=== PATIENT | male | born 1965 | race Caucasian/White ===

== ENCOUNTER 2017-08-03 12:53 | Day surgery (SDC) | payer OTHER ==
[2017-08-03] MEDS ORDERED: MIDAZOLAM 1 MG/ML 2 ML INJ ×2 (15:38)
[2017-08-03] MEDS ORDERED: FENTAnyl 50 MCG/ML VIAL (15:38)
[2017-08-03] MEDS ORDERED: MEPERIDINE 50 MG INJ (15:38)
== END 2017-08-03 16:20 | disposition home or self-care (01) ==
LOC: GIL 12:53
DX: Z12.11 Encounter for screening for malignant neoplasm of colon (principal); D12.4 Benign neoplasm of descending colon; K57.90 Diverticulosis of intestine, part unspecified, without perforation or abscess without bleeding; Z80.0 Family history of malignant neoplasm of digestive organs
CPT/HCPCS: 45380; 88305